=== PATIENT | male | born 1985 | race Caucasian/White ===

== ENCOUNTER 2017-09-19 16:42 | Inpatient (IN) | payer BC ==
[~2017-09-19] VITALS: Ht 172.7 cm; Wt 80.7 kg
[2017-09-19] MEDS ORDERED: GENTAMICIN SULFATE INJ 80 MG in IV DEXTROSE 5% 100 ML IV ONE (17:00)
[2017-09-19] MEDS ORDERED: VANCOMYCIN IV 1,000 MG in IV DEXTROSE 5% 250 ML IV ONE (17:00)
[2017-09-19] MEDS ORDERED: CEFTRIAXONE 1 G in IV DEXTROSE 5% 50 ML IV ONE (17:00)
[2017-09-19] MEDS ORDERED: IV NORMAL SALINE 1000 ML BAG IV ONE (17:00)
[2017-09-19 17:24] LABS: BASOPHILS % (AUTO) 0.3 % (0.0-2.0); EOSINOPHILS % (AUTO) 0.1 % (0.0-7.0); HEMATOCRIT 43.5 % (36.7-47.1); HEMOGLOBIN 14.5 g/dL (12.5-16.3); LYMPHOCYTES # (AUTO) 0.5 K/uL (20.0-40.0); LYMPHOCYTES % (AUTO) 4.1 % (20.5-51.5); MEAN CORPUSCULAR HEMOGLOBIN 29.7 uug (23.8-33.4); MEAN CORPUSCULAR HGB CONC 33 g/dL (32.5-36.3); MEAN CORPUSCULAR VOLUME 89.4 fL (73.0-96.2); MONOCYTES # (AUTO) 1.1 K/uL (2.0-10.0); NEUTROPHILS # (AUTO) 10.1 K/uL (1.8-8.9); NEUTROPHILS % (AUTO) 86.5 % (38.5-71.5); PLATELET COUNT (AUTO) 141 K/uL (152-348); RED BLOOD CELL COUNT(AUTO) 4.87 MIL/uL (4.06-5.63); WHITE BLOOD COUNT (AUTO) 11.7 K/uL (3.6-10.2)
[2017-09-19 17:31] LABS: CREATININE 1.1 mg/dL (0.6-1.3); POTASSIUM 3.6 mmol/L (3.5-5.1)
[2017-09-19 17:36] LABS: BILIRUBIN,DIRECT 0.1 mg/dL (0.0-0.2); BILIRUBIN,TOTAL 0.5 mg/dL (0.2-1.0); TOTAL PROTEIN, SERUM 6.7 g/dL (6.4-8.2)
[2017-09-19] MEDS ORDERED: VANCOMYCIN IV 200 ML ONE (18:10)
[2017-09-19] MEDS ORDERED: MAGNESIUM HYDROXIDE 30 ML LIQUID UDC PO PRN (18:15)
[2017-09-19] MEDS ORDERED: ACETAMINOPHEN 325 MG TABLET PO PRN (18:15)
[2017-09-19 18:49] LABS: *BILIRUBIN,URIN NEGATIVE (NEGATIVE); *BLOOD, URINE Trace-lysed (NEGATIVE); *COLOR,URINE YELLOW (YELLOW); *KETONES,URINE NEGATIVE (NEGATIVE); *PROTEIN,URINE NEGATIVE (NEGATIVE); *UROBILINOGEN,URINE 0.2 E.U./dl (NORMAL); LEUKOCYTE ESTERASE ,URINE 1+ (NEGATIVE); NITRITE, URINE POSITIVE (NEGATIVE); UGLUCOSE NEGATIVE (NEGATIVE)
[2017-09-19] MEDS: ONDANSETRON 4 MG/2 ML VIAL IV PRN (18:56)
[2017-09-19 18:58] LABS: *CLARITY,URINE SLIGHTLY HAZY (CLEAR)
[2017-09-19 18:59] LABS: RBC,URINE 0-3 /HPF (0-3)
[2017-09-19] MEDS ORDERED: ONDANSETRON 4 MG/2 ML VIAL ONE (18:59)
[2017-09-19 19:00] LABS: BACTERIA,URINE MODERATE /HPF (NONE SEEN); MUCUS,URINE FEW /LPF (0-FEW)
[2017-09-19 20:18] VITALS: BP 121/77
[2017-09-19] MEDS: LORAZEPAM 2 MG/1 ML VIAL IV PRN (21:18)
[2017-09-19] MEDS: IV NS 1000 ML 1,000 ML IV PRN (21:19)
[2017-09-19] MEDS: TEMAZEPAM 15 MG CAPSULE PO PRN (22:13)
[2017-09-20] VITALS: BP 111/61
[2017-09-20] MEDS: LORAZEPAM 2 MG/1 ML VIAL IV PRN ×2 (03:44→12:17)
[2017-09-20 03:46] VITALS: BP 120/83
[2017-09-20] MEDS: ONDANSETRON 4 MG/2 ML VIAL IV PRN (04:46)
[2017-09-20] MEDS ORDERED: VANCOMYCIN IV 200 ML ONE (05:40)
[2017-09-20] MEDS ORDERED: VANCOMYCIN HCL 500 MG VIAL ONE (05:41)
[2017-09-20] MEDS ORDERED: VANCOMYCIN IV 1,250 MG in IV DEXTROSE 5% 500 ML IV SCH (06:00)
[2017-09-20] MEDS: IV NS 1000 ML 1,000 ML IV PRN (06:04)
[2017-09-20] MEDS: PANTOPRAZOLE SODIUM 40 MG TABLET.DR PO SCH (06:04)
[2017-09-20 06:10] LABS: BASOPHILS % (AUTO) 0.1 % (0.0-2.0); EOSINOPHILS % (AUTO) 0.1 % (0.0-7.0); HEMATOCRIT 42.5 % (36.7-47.1); HEMOGLOBIN 14.3 g/dL (12.5-16.3); LYMPHOCYTES # (AUTO) 1.1 K/uL (20.0-40.0); LYMPHOCYTES % (AUTO) 8.6 % (20.5-51.5); MEAN CORPUSCULAR HEMOGLOBIN 29.5 uug (23.8-33.4); MEAN CORPUSCULAR HGB CONC 34 g/dL (32.5-36.3); MEAN CORPUSCULAR VOLUME 87.8 fL (73.0-96.2); MONOCYTES # (AUTO) 1.1 K/uL (2.0-10.0); MONOCYTES % (AUTO) 8.6 % (0.0-11.0); NEUTROPHILS # (AUTO) 10.8 K/uL (1.8-8.9); NEUTROPHILS % (AUTO) 82.6 % (38.5-71.5); PLATELET COUNT (AUTO) 156 K/uL (152-348); RED BLOOD CELL COUNT(AUTO) 4.84 MIL/uL (4.06-5.63)
[2017-09-20 06:27] LABS: CREATININE 1.1 mg/dL (0.6-1.3); MAGNESIUM 1.6 mg/dL (1.8-2.4); PHOSPHOROUS 3.1 mg/dL (2.5-4.9); POTASSIUM 3.9 mmol/L (3.5-5.1)
[2017-09-20] MEDS: VANCOMYCIN IV 1,250 MG in IV DEXTROSE 5% 500 ML IV SCH ×2 (08:14→20:13)
[2017-09-20] MEDS ORDERED: HYDROCODONE/APAP 5-325MG TABLET PO PRN (08:30)
[2017-09-20] MEDS ORDERED: MAGNESIUM SULFATE/D5W 100 ML IV SCH (08:45)
[2017-09-20 11:15] VITALS: BP 138/74
[2017-09-20] MEDS: CEFTRIAXONE 1 G in IV DEXTROSE 5% 50 ML IV SCH (16:04)
[2017-09-20] MEDS: BUTALB/ACETAMINOPHEN/CAFFEINE TABLET PO PRN (16:07)
[2017-09-20 16:27] VITALS: BP 147/75
[2017-09-20] MEDS: QUETIAPINE FUMARATE 25 MG TABLET PO PRN (16:51)
[2017-09-20 20:00] VITALS: BP 128/61
[2017-09-20] MEDS ORDERED: CLONIDINE HCL 0.2 MG TABLET PO SCH (21:00)
[2017-09-20] MEDS ORDERED: CLONIDINE HCL 0.1 MG TABLET PO SCH (21:00)
[2017-09-20] MEDS: TEMAZEPAM 15 MG CAPSULE PO PRN (22:24)
[2017-09-21 04:47] VITALS: BP 105/57
[2017-09-21] MEDS: IV NS 1000 ML 1,000 ML IV PRN ×3 (06:11→18:36)
[2017-09-21] MEDS: PANTOPRAZOLE SODIUM 40 MG TABLET.DR PO SCH (06:22)
[2017-09-21 06:47] LABS: BASOPHILS % (AUTO) 0.3 % (0.0-2.0); EOSINOPHILS # (AUTO) 0.1 K/uL (0.0-0.7); EOSINOPHILS % (AUTO) 1.8 % (0.0-7.0); HEMATOCRIT 39.8 % (36.7-47.1); HEMOGLOBIN 13.3 g/dL (12.5-16.3); LYMPHOCYTES % (AUTO) 13.9 % (20.5-51.5); MEAN CORPUSCULAR HEMOGLOBIN 29.6 uug (23.8-33.4); MEAN CORPUSCULAR HGB CONC 34 g/dL (32.5-36.3); MEAN CORPUSCULAR VOLUME 88.3 fL (73.0-96.2); MONOCYTES # (AUTO) 0.7 K/uL (2.0-10.0); MONOCYTES % (AUTO) 10.5 % (0.0-11.0); NEUTROPHILS # (AUTO) 5.2 K/uL (1.8-8.9); NEUTROPHILS % (AUTO) 73.5 % (38.5-71.5); PLATELET COUNT (AUTO) 132 K/uL (152-348); RED BLOOD CELL COUNT(AUTO) 4.51 MIL/uL (4.06-5.63)
[2017-09-21 06:48] LABS: CREATININE 0.9 mg/dL (0.6-1.3)
[2017-09-21] MEDS: VANCOMYCIN IV 1,250 MG in IV DEXTROSE 5% 500 ML IV SCH (07:35)
[2017-09-21] MEDS ORDERED: CLONIDINE HCL 0.1 MG TABLET PO SCH (09:00)
[2017-09-21] MEDS ORDERED: PROPRANOLOL HCL 40 MG TABLET PO SCH (09:00)
[2017-09-21] MEDS: LORAZEPAM 2 MG/1 ML VIAL IV PRN ×2 (09:16→15:08)
[2017-09-21] MEDS: BUTALB/ACETAMINOPHEN/CAFFEINE TABLET PO PRN ×2 (11:31→18:36)
[2017-09-21 11:35] VITALS: BP 110/75
[2017-09-21 15:28] VITALS: BP 124/81
[2017-09-21] MEDS: QUETIAPINE FUMARATE 25 MG TABLET PO PRN ×2 (16:28→20:21)
[2017-09-21] MEDS: CEFTRIAXONE 1 G in IV DEXTROSE 5% 50 ML IV SCH (16:28)
[2017-09-21 19:26] VITALS: BP 126/81
[2017-09-21] MEDS ORDERED: AZITHROMYCIN 250 MG TABLET PO ONE (20:15)
[2017-09-21] MEDS ORDERED: DOXYCYCLINE HYCLATE 100 MG TABLET PO ONE (20:30)
[2017-09-21] MEDS ORDERED: LACTOBACILLUS RHAMNOSUS GG 1 EACH CAPSULE PO SCH (21:00)
== END 2017-09-21 21:20 | disposition other institution (70) | DRG 872 ==
LOC: ER 16:44 → TELE 19:11 → MED 09-20 18:27
PROVIDERS: ADMIT Nurse Practitioner Acute Care; ATTEND Nurse Practitioner Acute Care
DX: A41.9 Sepsis, unspecified organism (principal); N39.0 Urinary tract infection, site not specified; F13.20 Sedative, hypnotic or anxiolytic dependence, uncomplicated; E87.2 Acidosis; F11.20 Opioid dependence, uncomplicated; F17.210 Nicotine dependence, cigarettes, uncomplicated; F41.9 Anxiety disorder, unspecified; G43.909 Migraine, unspecified, not intractable, without status migrainosus; G25.81 Restless legs syndrome; F32.9 Major depressive disorder, single episode, unspecified; Z72.51 High risk heterosexual behavior; E83.42 Hypomagnesemia; D69.6 Thrombocytopenia, unspecified; I10 Essential (primary) hypertension
CPT/HCPCS: 36415; 70030-TC; 71045; 83605; 83735; 84100; 85025; 85730; 86592; 86803; 87040; 87086; 87536; 87806; 93005; 93307; A4663; J0696; J1580; J2060; J2405; J3370; J3475; J7030; J7040; J7060